=== PATIENT | female | born 1980 | race Caucasian/White ===

== ENCOUNTER 2016-09-09 00:13 | Emergency (ER) | payer OTHER ==
[2016-09-09 02:30] LABS: RED BLOOD COUNT 5.44 M/UL (4.00-5.10); WHITE BLOOD COUNT 23.1 K/UL (4.5-11.0)
[2016-09-09 02:47] LABS: BUN/CREATININE RATIO 8 (0-10)
[2016-09-09 06:58] LABS: BUN/CREATININE RATIO 8 (0-10)
== END 2016-09-09 09:10 | disposition home or self-care (01) ==
LOC: ER1 00:13
PROVIDERS: Physician Assistant
DX: R56.9 Unspecified convulsions (principal); Z91.19 Patient's noncompliance with other medical treatment and regimen; S09.90XA Unspecified injury of head, initial encounter; W18.30XA Fall on same level, unspecified, initial encounter; Y93.E1 Activity, personal bathing and showering
CPT/HCPCS: 36415; 70450; 71010; 72125; 80048; 80053; 80307; 81001; 84703; 85025; 87086; 93005; 96361; 96374; 96375; 99285; J1953; J2060; J2405; J7030

== ENCOUNTER 2020-06-07 20:23 | Inpatient (IN) | payer OTHER ==
[~2020-06-07] VITALS: Ht 172.7 cm; Wt 75.8 kg
[~2020-06-07 20:23] MED LIST: ALPRAZOLAM0.5 MG PO; AUGMENTIN 875-1 EACH PO; BENTYL 20MG TAB20 MG PO; BROMFED DM COU473 ML PO; CATAPRES 0.1MG0.1 MG PO; CATAPRES0.2 MG PO; CEFUROXIME500 MG PO; COLACE100 MG PO; DIFLUCAN150 MG PO; FLONASE 0.05% N16 GM; GABAPENTIN300 MG PO; GABAPENTIN800 MG PO; HYDROCHLOROTHIA25 MG PO; HYDROCODON-ACE1 EAC6 PO; IBUPROFEN600 MG PO; IMODIUM CAP 2 MG2 MG PO; INVANZ 1 GM VIAL1 GM IM; KEPPRA1000 MG PO; KLONOPIN TAB 00.5 MG PO; LEVAQUIN750 MG PO; LODINE CAP 300300 MG PO; LOPRESSOR 25 MG25 MG PO; MACROBID 100 M100 MG PO; Magic Mouth Wash PO; NAPROSYN500 MG PO; NEXIUM40 MG PO; NORCO 10-325 T1 EACH PO; NORFLEX 100 MG100 MG PO; OMNICEF 300 MG300 MG PO; ONDANSETRON ODT4 MG PO; ONDANSETRON ODT4 MG SL; PHENERGAN 12.12.5 MG PR; PHENERGAN 25 MG25 M1 PO; PROTONIX 40 MG40 M1 PO; PYRIDIUM PO; PYRIDIUM200 MG PO; TORADOL 10 MG T10 MG PO; ZOFRAN ODT 4 MG4 MG PO; ZOFRAN4 MG PO; ZYRTEC10 MG PO
[2020-06-07 21:41] LABS: HEMOGLOBIN 11.1 gm/dl (12.3-15.3); RED BLOOD COUNT 4.04 M/UL (4.00-5.10); WHITE BLOOD COUNT 10.9 K/UL (4.5-11.0)
[2020-06-07] MEDS ORDERED: ESCITALOPRAM OX10 MG PO (23:08)
[2020-06-07] MEDS ORDERED: VENTOLIN HFA 66.7 GM INH (23:09)
[2020-06-07] MEDS ORDERED: UBRELVY50 MG PO (23:10)
[2020-06-07] MEDS ORDERED: CELEBREX100 MG PO (23:11)
[2020-06-08 07:28] LABS: HEMOGLOBIN 9.8 gm/dl (12.3-15.3); RED BLOOD COUNT 3.5 M/UL (4.00-5.10); WHITE BLOOD COUNT 10.9 K/UL (4.5-11.0)
[2020-06-09 03:32] LABS: HEMOGLOBIN 9.1 gm/dl (12.3-15.3); RED BLOOD COUNT 3.3 M/UL (4.00-5.10)
[2020-06-09 03:36] LABS: WHITE BLOOD COUNT 7.9 K/UL (4.5-11.0)
--- NOTE | 2020-06-09 19:17 | NUR ---
PT WANTED XANAX SHE TAKES AT HOME. NOTIFIED DR PARR. RECIEVED ORDERS. WILL CONTINUE TO [facility].
[2020-06-10 04:59] LABS: BUN/CREATININE RATIO 12 (0-10)
[2020-06-11 05:28] LABS: BUN/CREATININE RATIO 11 (0-10)
[2020-06-11] MEDS ORDERED: BACTRIM DS TAB1 EACH PO (10:12)
[2020-06-11] MEDS ORDERED: HYDROCODON-ACE1 EAC4 PO (10:42)
--- NOTE | 2020-06-11 15:27 | NUR ---
1300- WOUND CARE DONE PER DOCTOR KNOWLES . PACKING REMOVED WOUND IRRIGATED WITH NORMAL SALINE. WOUND RE PACKED WITH [id number] TO KRISTOPHER WITH GAUZE WRAP AROUND THE GAUZE. PATIENT TOLERATED THE PROCEDURE WILL .
== END 2020-06-11 14:18 | disposition home or self-care (01) | DRG 854 ==
LOC: ER1 20:23 → MED SURG 4 23:22 → CDU 23:22 → MED SURG 4 06-08 01:53
PROVIDERS: Family Medicine; Physician Assistant; Surgery; ADMIT Internal Medicine
PROC: 0J9H0ZZ Drainage of Left Lower Arm Subcutaneous Tissue and Fascia, Open Approach (ICD-10-PCS; principal; 2020-06-08 16:00)
DX: A41.9 Sepsis, unspecified organism (principal); L03.114 Cellulitis of left upper limb; L02.414 Cutaneous abscess of left upper limb; I10 Essential (primary) hypertension; S50.12XA Contusion of left forearm, initial encounter; F19.10 Other psychoactive substance abuse, uncomplicated; Z20.822 Contact with and (suspected) exposure to COVID-19
CPT/HCPCS: 36415; 73200; 80048; 80053; 80202; 80307; 82550; 82553; 83605; 83874; 85025; 85027; 87040; 87070; 87205; 90471; 96365; 96366; 96367; 96375; 96376; 97161; 99285; G0378; J0696; J1170; J1885; J2001; J2250; J2270; J2405; J2543; J2704; J3010; J3370; J3480; J7070; J7120; U0002

== ENCOUNTER → 2020-06-12 | Outpatient (CLI) | payer OTHER ==
[~2020-06-12] MED LIST changes: +BACTRIM DS TAB1 EACH PO; +BUPRENORPHIN-N1 EACH SL; +CELEBREX100 MG PO; +COLACE 100MG C100 MG PO; +ESCITALOPRAM OX10 MG PO; +HYDROCODON-ACE1 EAC4 PO; +IBUPROFEN800 MG PO; +KEPPRA500 MG PO; +LEVOFLOXACIN500 MG PO; +UBRELVY50 MG PO; +VENTOLIN HFA 66.7 GM INH; +ZOFRAN 4 MG TAB4 MG PO
== END ==
LOC: WCC 14:10
PROC: 0KBB0ZZ Excision of Left Lower Arm and Wrist Muscle, Open Approach (ICD-10-PCS; principal; 2020-06-12)
DX: L02.414 Cutaneous abscess of left upper limb (principal); F15.11 Other stimulant abuse, in remission; M79.622 Pain in left upper arm; I10 Essential (primary) hypertension

== ENCOUNTER 2020-06-13 20:44 | Emergency (ER) | payer OTHER ==
[~2020-06-13 20:44] MED LIST changes: -BUPRENORPHIN-N1 EACH SL; -COLACE 100MG C100 MG PO; -IBUPROFEN800 MG PO; -KEPPRA500 MG PO; -LEVOFLOXACIN500 MG PO; -ZOFRAN 4 MG TAB4 MG PO
[2020-06-13 21:46] LABS: RED BLOOD COUNT 4.5 M/UL (4.00-5.10); WHITE BLOOD COUNT 9.9 K/UL (4.5-11.0)
[2020-06-13 21:48] LABS: HEMOGLOBIN 12.4 gm/dl (12.3-15.3)
[2020-06-13 22:08] LABS: BUN/CREATININE RATIO 9 (0-10)
[2020-06-14] MEDS ORDERED: BENTYL 20MG TAB20 MG PO (01:54)
[2020-06-14] MEDS ORDERED: ZOFRAN 4 MG TAB4 MG PO (01:54)
[2020-06-14] MEDS ORDERED: COLACE 100MG C100 MG PO (01:54)
[2020-06-14] MEDS ORDERED: IBUPROFEN800 MG PO (01:54)
== END 2020-06-14 02:28 | disposition home or self-care (01) ==
LOC: ER1 20:44
PROVIDERS: Emergency Medicine
DX: K59.00 Constipation, unspecified (principal); I10 Essential (primary) hypertension; Z90.49 Acquired absence of other specified parts of digestive tract; Z88.1 Allergy status to other antibiotic agents
CPT/HCPCS: 36415; 70450; 80053; 81001; 83690; 84703; 85025; 87040; 96374; 96375; 96376; 99284; J0360; J2270; J2405; J7030; Q9967

== ENCOUNTER → 2020-06-26 | Outpatient (CLI) | payer OTHER ==
[~2020-06-26] MED LIST changes: +BUPRENORPHIN-N1 EACH SL; +COLACE 100MG C100 MG PO; +IBUPROFEN800 MG PO; +KEPPRA500 MG PO; +LEVOFLOXACIN500 MG PO; +ZOFRAN 4 MG TAB4 MG PO
== END ==
LOC: WCC 11:30
DX: L02.414 Cutaneous abscess of left upper limb (principal); F15.11 Other stimulant abuse, in remission; M79.622 Pain in left upper arm; I10 Essential (primary) hypertension
CPT/HCPCS: 97597

== ENCOUNTER 2020-07-25 16:48 | Inpatient (IN) | payer OTHER ==
[~2020-07-25] VITALS: Ht 162.6 cm; Wt 68.0 kg
[~2020-07-25 16:48] MED LIST changes: -BUPRENORPHIN-N1 EACH SL; -KEPPRA500 MG PO; -LEVOFLOXACIN500 MG PO
[2020-07-25 17:46] LABS: HEMOGLOBIN 12.2 gm/dl (12.3-15.3); RED BLOOD COUNT 4.59 M/UL (4.00-5.10); WHITE BLOOD COUNT 10.4 K/UL (4.5-11.0)
[2020-07-25 18:01] LABS: BUN/CREATININE RATIO 14 (0-10)
[2020-07-25] MEDS ORDERED: BUPRENORPHIN-N1 EACH SL (23:26)
[2020-07-25] MEDS ORDERED: LEVOFLOXACIN500 MG PO (23:36)
[2020-07-26 06:07] LABS: HEMOGLOBIN 10.8 gm/dl (12.3-15.3); RED BLOOD COUNT 3.96 M/UL (4.00-5.10); WHITE BLOOD COUNT 8.9 K/UL (4.5-11.0)
--- NOTE | 2020-07-26 06:19 | NUR ---
PATIENT HAS SLEPT INTERMITTENTLY THROUGHOUT THE NIGHT; WAKES UP PERIODICALLY WITH CONFUSION. PATIENT MUST CONTINUOUSLY BE REORIENTED; PULLS ON IV AND RONQUILLO CATHETER BUT HAS NOT REMOVED THEM. WILL REPORT TO ONCOMING SHIFT.
[2020-07-26 06:45] LABS: BUN/CREATININE RATIO 14 (0-10)
[2020-07-26] MEDS ORDERED: KEPPRA500 MG PO (14:59)
== END 2020-07-26 15:53 | disposition home or self-care (01) | DRG 100 ==
LOC: ER1 16:48 → CDU 18:42 → PROG CARE 18:42
PROVIDERS: Emergency Medicine; ADMIT Family Medicine
DX: G40.909 Epilepsy, unspecified, not intractable, without status epilepticus (principal); G92 Toxic encephalopathy; F15.10 Other stimulant abuse, uncomplicated; Z20.822 Contact with and (suspected) exposure to COVID-19; F11.90 Opioid use, unspecified, uncomplicated; Z91.14 Patient's other noncompliance with medication regimen; Z98.51 Tubal ligation status; Z23 Encounter for immunization
CPT/HCPCS: 36415; 70450; 71045; 80053; 80307; 81001; 82550; 82553; 83605; 83735; 83874; 84484; 84703; 85025; 87040; 96365; 96366; 96372; 96375; 96376; 99285; G0480; J1953; J2060; J2250; J2405; J3486; J7030; U0002

== ENCOUNTER 2020-11-24 21:36 | Emergency (ER) | payer OTHER ==
[~2020-11-24 21:36] MED LIST changes: +BUPRENORPHIN-N1 EACH SL; +KEPPRA500 MG PO; +LEVOFLOXACIN500 MG PO
== END 2020-11-24 23:30 | disposition home or self-care (01) ==
LOC: ER1 21:36
DX: R10.31 Right lower quadrant pain (principal); R11.10 Vomiting, unspecified; Z90.89 Acquired absence of other organs
CPT/HCPCS: 99283; Q9967

== ENCOUNTER → 2020-12-21 | Outpatient (CLI) | payer OTHER ==
[2020-12-21 13:07] LABS: HEMOGLOBIN 11.2 gm/dl (12.3-15.3); RED BLOOD COUNT 4.2 M/UL (4.00-5.10); WHITE BLOOD COUNT 3.9 K/UL (4.5-11.0)
[2020-12-21 13:26] LABS: BUN/CREATININE RATIO 11 (0-10)
== END ==
LOC: LAB 11:26
PROVIDERS: Nurse Practitioner Family
DX: M25.512 Pain in left shoulder (principal); I10 Essential (primary) hypertension; F41.9 Anxiety disorder, unspecified; M19.012 Primary osteoarthritis, left shoulder; M19.042 Primary osteoarthritis, left hand
CPT/HCPCS: 36415; 36591; 73030; 73130; 80053; 80061; 82607; 84443; 85027

== ENCOUNTER → 2021-01-18 | Outpatient (CLI) | payer OTHER ==
[2021-01-19 09:13] LABS: HBSAG SCREEN Negative (Negative); HEP A AB, IGM Negative (Negative); HEP B CORE AB, IGM Negative (Negative); HEP C VIRUS AB >11.0 (0.0-0.9)
== END ==
LOC: LAB 09:46
PROVIDERS: Nurse Practitioner Family
DX: R89.9 Unspecified abnormal finding in specimens from other organs, systems and tissues (principal)
CPT/HCPCS: 36415; 80074; 86038

== ENCOUNTER 2021-02-01 04:42 | Emergency (ER) | payer OTHER ==
[2021-02-01 05:39] LABS: HEMOGLOBIN 13.3 gm/dl (12.3-15.3); RED BLOOD COUNT 4.83 M/UL (4.00-5.10); WHITE BLOOD COUNT 8.9 K/UL (4.5-11.0)
[2021-02-01 05:59] LABS: BUN/CREATININE RATIO 11 (0-10)
[2021-02-01] MEDS ORDERED: KEPPRA 500 MG500 MG PO (06:36)
== END 2021-02-01 07:38 | disposition home or self-care (01) ==
LOC: ER1 04:42
PROVIDERS: Student in an Organized Health Care Education/Training Program
DX: G40.909 Epilepsy, unspecified, not intractable, without status epilepticus (principal)
CPT/HCPCS: 70450; 71045; 80053; 80307; 81001; 82693; 83690; 84703; 85025; 99284; G0480

== ENCOUNTER 2021-05-20 01:39 | Emergency (ER) | payer OTHER ==
[~2021-05-20 01:39] MED LIST changes: +KEPPRA 500 MG500 MG PO
[2021-05-20 02:27] LABS: HEMOGLOBIN 11.7 gm/dl (12.3-15.3); RED BLOOD COUNT 4.57 M/UL (4.00-5.10); WHITE BLOOD COUNT 9.1 K/UL (4.5-11.0)
[2021-05-20 03:42] LABS: BUN/CREATININE RATIO 12 (0-10)
[2021-05-20] MEDS ORDERED: MIRALAX 119 GR119 GM GT (04:52)
[2021-05-20] MEDS ORDERED: LINZESS145 MCG PO (04:52)
== END 2021-05-20 08:16 | disposition home or self-care (01) ==
LOC: ER1 01:39
PROVIDERS: Family Medicine
DX: R10.9 Unspecified abdominal pain (principal); R11.2 Nausea with vomiting, unspecified; E11.9 Type 2 diabetes mellitus without complications; I10 Essential (primary) hypertension
CPT/HCPCS: 74022; 80053; 80307; 81001; 82550; 82553; 83690; 83874; 84484; 85025; 87086; 93005; 96372; 96374; 96375; 96376; 99284; G0480; J1885; J2060; J2212; J2405; J7030

== ENCOUNTER 2021-10-08 09:45 | Observation (INO) | payer OTHER ==
[~2021-10-08] VITALS: Ht 175.3 cm; Wt 68.0 kg
[~2021-10-08 09:45] MED LIST changes: -BUPRENORPHIN-N1 EACH SL; +LINZESS145 MCG PO; +MIRALAX 119 GR119 GM GT; +PROAIR HFA8.5 GM INH; -VENTOLIN HFA 66.7 GM INH
[2021-10-08 11:14] LABS: HEMOGLOBIN 11.8 gm/dl (12.3-15.3); RED BLOOD COUNT 4.34 M/UL (4.00-5.10); WHITE BLOOD COUNT 11.4 K/UL (4.5-11.0)
[2021-10-08 11:30] LABS: BUN/CREATININE RATIO 10 (0-10)
[2021-10-08] MEDS ORDERED: CLONIDINE HCL0.2 MG PO (16:24)
[2021-10-08] MEDS ORDERED: PROZAC 10 MG CA10 MG PO (18:15)
[2021-10-08] MEDS ORDERED: COMBIVENT RESPIM4 GM INH (18:16)
[2021-10-08] MEDS ORDERED: ONDANSETRON ODT4 MG PO (18:17)
[2021-10-08] MEDS ORDERED: AMLODIPINE BESY10 MG PO (18:18)
[2021-10-08] MEDS ORDERED: BUSPIRONE HCL15 MG PO (18:19)
[2021-10-08] MEDS ORDERED: LEVOTHYROXINE25 MCG PO (18:20)
[2021-10-08] MEDS ORDERED: MONTELUKAST SOD10 MG PO (18:21)
[2021-10-08] MEDS ORDERED: RIZATRIPTAN10 M1 PO (18:24)
[2021-10-08] MEDS ORDERED: LEVETIRACETAM750 M1 PO (18:25)
[2021-10-08] MEDS ORDERED: NITROGLYCERIN0.4 MG SL (18:27)
[2021-10-08] MEDS ORDERED: GABAPENTIN600 MG PO (18:29)
[2021-10-08] MEDS ORDERED: MECLIZINE HCL25 MG PO (18:30)
[2021-10-08] MEDS ORDERED: BUPRENORPHIN-N1 EACH SL (23:26)
[2021-10-09 06:41] LABS: RED BLOOD COUNT 4.06 M/UL (4.00-5.10); WHITE BLOOD COUNT 11.2 K/UL (4.5-11.0)
[2021-10-09 07:15] LABS: BUN/CREATININE RATIO 17 (0-10)
[2021-10-12] MEDS ORDERED: ZOFRAN 4 MG TAB4 MG PO (15:02)
[2021-10-12] MEDS ORDERED: CEPHALEXIN500 MG PO (22:46)
== END 2021-10-10 13:10 | disposition home or self-care (01) ==
LOC: ER1 09:45 → CDU 16:55 → M/S 16:55 → CCU 22:23 → M/S 10-09 15:27
PROVIDERS: Emergency Medicine; Physician Assistant; ADMIT Internal Medicine
DX: R56.9 Unspecified convulsions (principal); G93.41 Metabolic encephalopathy; I10 Essential (primary) hypertension; F19.10 Other psychoactive substance abuse, uncomplicated; D72.829 Elevated white blood cell count, unspecified; E87.6 Hypokalemia
CPT/HCPCS: 36415; 70450; 70551; 71045; 80053; 80307; 81001; 83735; 84132; 84703; 85025; 94640; 94664; 94760; 96372; 96374; 96375; 96376; 99285; G0378; J1650; J1953; J2060; J2270; J2405; J2550; J7030

== ENCOUNTER 2021-11-16 13:58 | Emergency (ER) | payer OTHER ==
[~2021-11-16 13:58] MED LIST changes: +AMLODIPINE BESY10 MG PO; +BUPRENORPHIN-N1 EACH SL; +BUSPIRONE HCL15 MG PO; +CEPHALEXIN500 MG PO; +CLONIDINE HCL0.2 MG PO; +COMBIVENT RESPIM4 GM INH; +GABAPENTIN600 MG PO; +LEVETIRACETAM750 M1 PO; +LEVOTHYROXINE25 MCG PO; +MECLIZINE HCL25 MG PO; +MONTELUKAST SOD10 MG PO; +NITROGLYCERIN0.4 MG SL; +PROZAC 10 MG CA10 MG PO; +RIZATRIPTAN10 M1 PO
[2021-11-16 14:54] LABS: HEMOGLOBIN 11.9 gm/dl (12.3-15.3); RED BLOOD COUNT 4.47 M/UL (4.00-5.10); WHITE BLOOD COUNT 8.5 K/UL (4.5-11.0)
[2021-11-16 15:47] LABS: BUN/CREATININE RATIO 27 (0-10)
[2021-11-16] MEDS ORDERED: PROTONIX 40 MG40 M1 PO (21:13)
[2021-11-16] MEDS ORDERED: PHENERGAN 25 MG25 M1 PO (21:13)
== END 2021-11-16 22:10 | disposition home or self-care (01) ==
LOC: ER1 13:58
DX: R10.9 Unspecified abdominal pain (principal); R11.2 Nausea with vomiting, unspecified; Z20.822 Contact with and (suspected) exposure to COVID-19
CPT/HCPCS: 0240U; 80053; 81001; 82550; 82553; 83605; 83690; 84484; 84703; 85025; 93005; 96374; 96375; 96376; 99284; J2270; J2550; Q9967

== ENCOUNTER 2022-01-06 12:58 | Emergency (ER) | payer OTHER ==
[2022-01-06 14:43] LABS: HEMOGLOBIN 11.8 gm/dl (12.3-15.3); RED BLOOD COUNT 4.46 M/UL (4.00-5.10); WHITE BLOOD COUNT 5.5 K/UL (4.5-11.0)
== END 2022-01-06 19:15 | disposition home or self-care (01) ==
LOC: ER1 12:58
PROVIDERS: Preventive Medicine Occupational Medicine
DX: G40.909 Epilepsy, unspecified, not intractable, without status epilepticus (principal); I10 Essential (primary) hypertension; W19.XXXA Unspecified fall, initial encounter
CPT/HCPCS: 70450; 80053; 85025; 93005; 96361; 96374; 96375; 99284; J2405